=== PATIENT | male | born 1995 | race Caucasian/White ===

== ENCOUNTER 2016-08-08 22:02 | Emergency (ER) | payer OTHER ==
[~2016-08-08] VITALS: Ht 177.8 cm; Wt 81.6 kg
[2016-08-08] MEDS ORDERED: NS 1,000 ML IV ONE (22:30)
[2016-08-08] MEDS ORDERED: PROMETHAZINE INJ 25 MG/ML VIAL (J2550) IV ONE (22:30)
[2016-08-08 23:42] LABS: ALBUMIN 4.5 GM/DL (3.2-5.2); ALBUMIN/GLOBULIN RATIO 1.36 (1.00-1.93); ALKALINE PHOSPHATASE 77 U/L (45-117); ALT/SGPT 21 U/L (12-78); AMYLASE 47 U/L (25-115); ANION GAP 7 MEQ/L (8-16); AST/SGOT 16 U/L (15-37); BILIRUBIN,DIRECT 0.2 MG/DL (0.0-0.2); BILIRUBIN,TOTAL 1.2 MG/DL (0.2-1.0); BLOOD UREA NITROGEN 15 MG/DL (7-18); CALCIUM LEVEL 8.7 MG/DL (8.5-10.1); CARBON DIOXIDE LEVEL 26 MEQ/L (21-32); CHLORIDE LEVEL 106 MEQ/L (98-107); CREATININE FOR GFR 1.01 MG/DL (0.70-1.30); GLUCOSE, FASTING 103 MG/DL (70-105); POTASSIUM SERUM 4.1 MEQ/L (3.5-5.1); SODIUM LEVEL 139 MEQ/L (136-145); TOTAL PROTEIN 7.8 GM/DL (6.4-8.2)
[2016-08-08 23:52] LABS: DIFF SLIDE NUMBER 334; MEAN CORPUSCULAR HEMOGLOBIN 31.5 pg (27.0-33.0); MEAN CORPUSCULAR HGB CONC 35.1 g/dl (32.0-36.5); MEAN CORPUSCULAR VOLUME 89.8 fl (80.0-96.0); PLATELET COUNT, AUTOMATED 195 k/mm3 (150-450); RED CELL DISTRIBUTION WIDTH 11.8 % (11.5-14.5); WHITE BLOOD COUNT 13.2 K/mm3 (4.0-10.0)
[2016-08-09 00:20] LABS: BANDS 3 % (< 11); EOSINOPHILS 2 % (0-5)
[2016-08-09] MEDS ORDERED: NS 1,000 ML IV ONE (01:00)
[2016-08-09] MEDS ORDERED: ZOFR4TAB3 PO (02:32)
[2016-08-09 02:50] VITALS: BP 140/72
== END 2016-08-09 02:50 | disposition home or self-care (01) ==
LOC: M ED 23:13
DX: A08.11 Acute gastroenteropathy due to Norwalk agent (principal); F17.200 Nicotine dependence, unspecified, uncomplicated

== ENCOUNTER 2016-11-27 03:00 | Emergency (ER) | payer OTHER ==
[~2016-11-27] VITALS: Ht 177.8 cm; Wt 85.5 kg
[~2016-11-27 03:00] MED LIST: ZOFR4TAB3 PO
[2016-11-27] MEDS ORDERED: ONDANSETRON 4MG/2ML VIAL (J2405) As Ordered ONE (03:50)
[2016-11-27] MEDS ORDERED: NS 1,000 ML IV ONE (04:30)
[2016-11-27] MEDS ORDERED: KETOROLAC 30 MG/ML VIAL (J1885) IV ONE (04:30)
[2016-11-27] MEDS ORDERED: ONDANSETRON 4MG/2ML VIAL (J2405) IV ONE (04:30)
[2016-11-27 04:32] LABS: BASO % 0.5 % (0.0-1.0); EOS # 0.2 K/mm3 (0.0-0.50); EOS % 2.4 % (0.0-3.0); LARGE UNSTAINED CELL # 0.2 K/mm3 (0.0-0.4); LARGE UNSTAINED CELL % 1.8 % (0.0-4.0); LYMPH # 1.7 K/mm3 (1.5-6.5); LYMPH % 20.7 % (24.0-44.0); MEAN CORPUSCULAR HGB CONC 36.1 g/dl (32.0-36.5); MEAN CORPUSCULAR VOLUME 88.4 fl (80.0-96.0); MONO # 0.4 K/mm3 (0.0-0.8); NEUTROPHILS # 5.9 K/mm3 (1.8-7.7); NEUTROPHILS % 69.6 % (36.0-66.0); PLATELET COUNT, AUTOMATED 227 k/mm3 (150-450); RED CELL DISTRIBUTION WIDTH 11.9 % (11.5-14.5); WHITE BLOOD COUNT 8.4 K/mm3 (4.0-10.0)
[2016-11-27 04:42] LABS: ALBUMIN 4.4 GM/DL (3.2-5.2); ALBUMIN/GLOBULIN RATIO 1.42 (1.00-1.93); ALKALINE PHOSPHATASE 67 U/L (45-117); ALT/SGPT 28 U/L (12-78); ANION GAP 7 MEQ/L (8-16); AST/SGOT 17 U/L (15-37); BILIRUBIN,DIRECT 0.1 MG/DL (0.0-0.2); BILIRUBIN,TOTAL 0.4 MG/DL (0.2-1.0); BLOOD UREA NITROGEN 9 MG/DL (7-18); CALCIUM LEVEL 8.9 MG/DL (8.5-10.1); CARBON DIOXIDE LEVEL 30 MEQ/L (21-32); CHLORIDE LEVEL 108 MEQ/L (98-107); CREATININE FOR GFR 1.03 MG/DL (0.70-1.30); GLUCOSE, FASTING 106 MG/DL (70-105); SODIUM LEVEL 145 MEQ/L (136-145); TOTAL PROTEIN 7.5 GM/DL (6.4-8.2)
[2016-11-27] MEDS: MORPHINE 4 MG/ML 1ML SYRINGE IV PRN ×2 (04:51→05:10)
--- NOTE | 2016-11-27 05:10 | REPUSA ---
CLINICAL HISTORY: Abdominal pain. TECHNIQUE: Multiple axial, sagittal and coronal CT images were obtained through the abdomen and pelvi s without administration of oral or IV contrast material. COMMENTS: The liver is of uniform attenuation without mass or defect. There is no intra or extrahepatic biliary ductal dilatation. The spleen is normal. The gallbladder is within normal limits. The pancreas is of normal contour and attenuation characteristics. There is no evidence of adrenal mass. Bilateral nonobstructing renal stones ranging in size between 3 and 8 mm. 3.3 mm obstructing stone of the right ureter at L3 level. Mild right hydroureteronephrosis. There is no evidence for appendicitis. There is no bowel wall thickening. No evidence for small or la rge bowel obstruction. There is no evidence of abdominal ascites or lymphadenopathy. There is no evidence of intrinsic or extrinsic bladder mass. There is no pelvic ascites or lymphadeno сергей. Mild large bowel fecal stasis. Images of the lung bases show no evidence of pleural or parenchymal mass. There are no pleural effusi ons. The bony structures are free of lytic or blastic lesions. IMPRESSION: Bilateral nephrolithiasis. Obstructing stone of the right ureter. Thank you for your kind referral of this patient.
[2016-11-27] MEDS ORDERED: MORPHINE 4 MG/ML 1ML SYRINGE As Ordered ONE (05:11)
[2016-11-27 05:34] VITALS: BP 119/68
[2016-11-27] MEDS ORDERED: FLOM5CAP PO ×2 (05:49→05:54)
[2016-11-27] MEDS ORDERED: PERC5TAB12 PO ×4 (05:49→05:54)
[2016-11-27] MEDS ORDERED: TAMSULOSIN 0.4 MG CAP PO ONE (06:00)
[2016-11-27] MEDS ORDERED: OXYCODONE/APAP 5MG/325MG(BULK FOR ED) 1 TABLET PO ONE (06:00)
== END 2016-11-27 06:22 | disposition home or self-care (01) ==
LOC: M ED 03:00
DX: N20.1 Calculus of ureter (principal)
CPT/HCPCS: 74176; 80048; 80076; 81001; 83690; 85025; 87040; 87086; 93041; 96374; 96375; 99284; J1885; J2405